=== PATIENT | female | born 1940 | race Caucasian/White ===

== ENCOUNTER 2017-01-04 16:00 | Emergency (ER) | payer OTHER ==
[~2017-01-04] VITALS: Ht 144.8 cm; Wt 63.6 kg
[2017-01-04 16:06] VITALS: Ht 144.8 cm; Wt 63.6 kg
[2017-01-04 16:35] LABS: ADD SCAN DIFF NO
[2017-01-04 16:39] LABS: BASOPHILS % 0.6 % (0.0-2.0); EOSINOPHILS # 0.1 10^3/ul (0.0-0.5); EOSINOPHILS % 1.7 % (0.0-7.0); HEMATOCRIT 40.2 % (37.0-47.0); HEMOGLOBIN 14.1 g/dl (12.0-16.0); LYMPHOCYTES # 2.6 10^3/ul (0.8-2.9); LYMPHOCYTES % 40.8 % (15.0-51.0); MEAN CORPUSCULAR HEMOGLOBIN 30.3 pg (29.0-33.0); MEAN CORPUSCULAR HGB CONC 35.1 g/dl (32.0-37.0); MEAN CORPUSCULAR VOLUME 86.3 fl (82.0-101.0); MEAN PLATELET VOLUME 11.4 fl (7.4-10.4); MONOCYTE # 0.8 10^3/ul (0.3-0.9); MONOCYTES % 12.2 % (0.0-11.0); NEUTROPHIL # 2.8 10^3/ul (1.6-7.5); NEUTROPHILS % 44.2 % (39.0-77.0); PLATELET COUNT 200 10^3/UL (140-415); RED BLOOD COUNT 4.66 10^6/ul (4.20-5.40); RED CELL DISTRIBUTION WIDTH 13.4 % (11.5-14.5); WHITE BLOOD COUNT 6.3 10^3/ul (4.8-10.8)
[2017-01-04 16:53] LABS: INR 0.91; PROTIME 12.2 Sec (12.2-14.2)
--- NOTE | 2017-01-04 16:53 | RADRPT ---
PROCEDURE: XR Chest. CLINICAL INDICATION: Chest pain TECHNIQUE: Single frontal view of the chest was obtained COMPARISON: None FINDINGS: The heart is enlarged. The thoracic aorta is calcified. The lungs are clear. There is no pleural effusion or pneumothorax. RPTAT: AA IMPRESSION: Mild cardiomegaly. Calcified aorta consistent with atherosclerotic disease. .Leo Mccurdy MD, MD Date Time Electronically viewed and signed by .Leo Mccurdy MD, on 01/04/2017 16:53 .S/
[2017-01-04 16:55] LABS: ANION GAP 20 (8-16); BLOOD UREA NITROGEN 22 mg/dl (7-20); CALCIUM 9.7 mg/dl (8.4-10.2); CARBON DIOXIDE 23 mmol/L (21-31); CHLORIDE 104 mmol/L (97-110); GLUCOSE 103 mg/dl (70-220); MAGNESIUM 2.1 mg/dl (1.7-2.5); POTASSIUM 3.8 mmol/L (3.5-5.1); SODIUM 143 mmol/L (135-144)
[2017-01-04] MEDS ORDERED: ATEN-51 PO (17:06)
[2017-01-04] MEDS ORDERED: LEVO25TA53 PO (17:06)
[2017-01-04 17:10] LABS: TROPONIN-I < 0.012 ng/ml (0.00-0.12)
[2017-01-04 17:14] LABS: FREE T3 3.94 pg/ml (2.77-5.27)
--- NOTE | 2017-01-04 17:24 | ERA ---
ER Documentation Chief Complaint Date/Time DATE: 01/04/17 TIME: 17:22 Chief Complaint bib ra for tachycardia 150s, nitro and aspirin given by paramedics HPI There is a 76-year-old female presents to the emergency room for evaluation of chest pain and heart palpitations. The patient states she is watching TV at home without chest pain which is centralized and pressure-like with no radiation. She states that she felt her heart racing and she began to cough. The patient called 911 was brought to the ER for evaluation. In route to the emergency room EKG does show sinus tachycardia with a heart rate of 140 bpm. This patient is denying any active palpitations at this time. She does say she has a history of high blood pressure and high cholesterol ROS All systems reviewed and are negative except as per history of present illness. Medications Home Meds Reported Medications Levothyroxine Sodium* (Levothyroxine Sodium*) 25 Mcg Tablet, 25 MCG PO BEFORE BREAKFAST, #30 TAB 01/04/17 Atenolol* (Atenolol*) 25 Mg Tablet, 25 MG PO BID, #60 TAB 01/04/17 Allergies Allergies: Coded Allergies: aspirin (Unverified Adverse Reaction, Unknown, 01/04/17) PATIENT ALLERGICTO HIGH DOSE ASPIRIN PMhx/Soc History of Surgery: Yes (Back surgery X 2 ) Anesthesia Reaction: No Hx Neurological Disorder: No Hx Respiratory Disorders: No Hx Cardiac Disorders: No Hx Psychiatric Problems: No Hx Miscellaneous Medical Probl: Yes (HTN, Cholesterol, hypothyroid) Hx Alcohol Use: No Hx Substance Use: No Hx Tobacco Use: No Smoking Status: Never smoker Physical Exam Vitals Vital Signs Date Time Temp Pulse Resp B/P Pulse Ox O2 Delivery O2 Flow Rate FiO2 01/04/17 16:06 98.1 56 17 175/96 98 Physical Exam INITIAL VITAL SIGNS: Reviewed by me GENERAL: The patient is well developed and appropriate for usual state of health in no apparent distress HEENT: Pupils equal, round, and reactive to light. EOMI. There is no scleral icterus. NECK: C-spine is soft and supple, there is no meningismus. There is no cervical lymphadenopathy. LUNGS: Clear to auscultation bilaterally. There are no rales, wheezes or rhonchi. HEART: Regular rate and rhythm, no murmurs, clicks, rubs or gallops. ABDOMEN: Soft, non-tender, non-distended. There are bowel sounds in all four quadrants. No rebound or guarding. EXTREMITIES: There is no peripheral cyanosis or edema. No focal swelling or erythema. NEUROLOGICAL: The patient moves all four extremities with 5/5 strength. Cranial nerves II - XII are intact. Normal gait. Alert and oriented SKIN: There is no apparent rash or petechiae. HEME/LYMPHATIC: There is no evidence of excessive bruising or lymphedema. PSYCHIATRIC: The patient appears mildly anxious Result Diagram: 01/04/17 1600 01/04/17 1600 Results 24 hrs Laboratory Tests Test 01/04/17 16:00 White Blood Count 6.310^3/ul Red Blood Count 4.6610^6/ul Hemoglobin 14.1g/dl Hematocrit 40.2% Mean Corpuscular Volume 86.3fl Mean Corpuscular Hemoglobin 30.3pg Mean Corpuscular Hemoglobin Concent 35.1g/dl Red Cell Distribution Width 13.4% Platelet Count 70814^3/UL Mean Platelet Volume 11.4fl Neutrophils % 44.2% Lymphocytes % 40.8% Monocytes % 12.2% Eosinophils % 1.7% Basophils % 0.6% Nucleated Red Blood Cells % 0.0/100WBC Neutrophils # 2.810^3/ul Lymphocytes # 2.610^3/ul Monocytes # 0.810^3/ul Eosinophils # 0.110^3/ul Basophils # 0.010^3/ul Nucleated Red Blood Cells # 0.010^3/ul Prothrombin Time 12.2Sec Prothrombin Time Ratio 1.0 INR International Normalized Ratio 0.91 Activated Partial Thromboplast Time 23.0Sec Sodium Level 143mmol/L Potassium Level 3.8mmol/L Chloride Level 104mmol/L Carbon Dioxide Level 23mmol/L Anion Gap 20 Blood Urea Nitrogen 22mg/dl Creatinine 1.00mg/dl Glucose Level 103mg/dl Calcium Level 9.7mg/dl Magnesium Level 2.1mg/dl Troponin I < 0.012ng/ml Thyroid Stimulating Hormone (TSH) Pending Free Thyroxine 1.03ng/dl Free Triiodothyronine (T3) pg/mL 3.94pg/ml [facility] EKG: Rate/Rhythm: Sinus bradycardia QRS, ST, T-waves: [No changes consistent w/ acute ischemia] Impression: [No evidence of ischemia or arrhythmia] EKG: #2 Rate/Rhythm: Sinus bradycardia QRS, ST, T-waves: [No changes consistent w/ acute ischemia] Impression: [No evidence of ischemia or arrhythmia] Chest X-ray 1V Interpreted by me: Soft Tissue: No acute abnormalities Bones: No acute abnormalities Mediastinum/Cardiac Silhouette/Lungs: Cardiomegaly This 76-year-old female presents to the ER for evaluation of chest pain and palpitations. This patient's prehospital EKG did show sinus tachycardia. EKG in the emergency room shows sinus bradycardia. This patient is now hypotensive and not hypoxic. I did obtain lab work including a troponin which is negative. Chest x-ray shows cardiomegaly. This patient does have "thyroid issues" and TSH and free T3 levels are within normal limits at this time. This patient has not had a stress test since 2009 and given her age and multiple risk factors she will be placed in at this time for serial troponins and cardiology evaluation. She will be placing under the care of Dr. morales Departure Diagnosis: Primary Impression: Chest pain Additional Impression: Heart palpitations Condition: Stable JAIMIE LEMUS DO Jan 04, 2017 17:24
[2017-01-04] MEDS ORDERED: ACETAMINOPHEN 325 MG TAB PO PRN (17:30)
[2017-01-04] MEDS ORDERED: ONDANSETRON 4 MG INJ IV PRN (17:30)
[2017-01-04 18:33] VITALS: BP 154/85; PULSE 81; RESP 20
== END 2017-01-04 18:34 | disposition left against medical advice (07) ==
LOC: E/R 16:00
DX: R07.9 Chest pain, unspecified (principal); R00.2 Palpitations; I10 Essential (primary) hypertension; E03.9 Hypothyroidism, unspecified
CPT/HCPCS: 36415; 71010; 80048; 83735; 84439; 84443; 84481; 84484; 85025; 85610; 85730; 93005

== ENCOUNTER 2019-03-23 20:22 | Emergency (ER) | payer OTHER ==
[~2019-03-23] VITALS: Ht 147.3 cm; Wt 54.9 kg
[~2019-03-23 20:22] MED LIST: ATEN-51 PO; LEVO25TA6 PO
[2019-03-23 20:40] VITALS: Ht 147.3 cm; Wt 54.9 kg
[2019-03-23] MEDS ORDERED: morphine 4 MG/ML VIAL IV STA (23:09)
[2019-03-23] MEDS ORDERED: ONDANSETRON 4 MG INJ IV STA (23:09)
[2019-03-23 23:57] VITALS: BP 159/82; PULSE 71; RESP 19
== END 2019-03-24 | disposition home or self-care (01) ==
LOC: E/R 20:22
DX: R30.0 Dysuria (principal); I10 Essential (primary) hypertension; E03.9 Hypothyroidism, unspecified
CPT/HCPCS: 74176; 80053; 81003; 85025